=== PATIENT | male | born 1995 | race Caucasian/White ===

== ENCOUNTER 2019-05-15 14:29 | Emergency (ER) | payer OTHER ==
[~2019-05-15] VITALS: Ht 182.9 cm; Wt 117.0 kg
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
--- NOTE | 2019-05-15 15:00 | NUR ---
BEDSIDE REPORT AND TRANSFER OF CARE TO [facility] AT THIS TIME.
[2019-05-15 16:17] VITALS: BP 127/77
== END 2019-05-15 16:36 | disposition home or self-care (01) ==
LOC: ED 16:13
DX: S02.2XXA Fracture of nasal bones, initial encounter for closed fracture (principal); F17.200 Nicotine dependence, unspecified, uncomplicated; Y08.89XA Assault by other specified means, initial encounter; Y93.89 Activity, other specified; Y92.89 Other specified places as the place of occurrence of the external cause; Y99.8 Other external cause status
CPT/HCPCS: 70160; 99283

== ENCOUNTER 2020-12-14 04:34 | Emergency (ER) | payer OTHER ==
[~2020-12-14] VITALS: Ht 182.9 cm; Wt 117.7 kg
[2020-12-14 04:36] VITALS: BP 154/109
== END 2020-12-14 06:16 | disposition home or self-care (01) ==
LOC: ED 06:10
DX: J34.89 Other specified disorders of nose and nasal sinuses (principal); F19.10 Other psychoactive substance abuse, uncomplicated; F41.9 Anxiety disorder, unspecified
CPT/HCPCS: 99281